=== PATIENT | male | born 1990 | race Caucasian/White ===

== ENCOUNTER 2020-03-06 05:34 | Emergency (ER) | payer OTHER ==
[2020-03-06] MEDS ORDERED: Ondansetron ODT 4 MG TAB ONE ×2 (06:07→06:09)
--- NOTE | 2020-03-06 08:45 | CT ---
PRELIMINARY REPORT/[facility]/EMERGENCY AFTER HOURS PROCEDURE: EXAM: CT Head Without Intravenous Contrast. CLINICAL HISTORY: 29-year-old inmate is brought to the emergency department for evaluation of a laceration sustained af ter a fall in the bathroom. The patient states that he was feeling a bit queasy to his stomach, sat d own on a bench, and the next thing he knew he was on the floor with somebody holding his head. The pa jessica thinks that the length of loss of consciousness was less than a minute. The patient does not hedrick ve any other injuries related to the fall, and is complaining of a mild headache in the area where he hit his head posteriorly, and still having some mild nausea with no associated abdominal pain. TECHNIQUE: Axial computed tomography images of the head/brain without intravenous contrast. COMPARISON: None provided. FINDINGS: BRAIN: No acute intraparenchymal hemorrhage. No mass lesion. No CT evidence for acute territorial infarct. N o midline shift or extra-axial collection. VENTRICLES: No hydrocephalus. ORBITS: The orbits are unremarkable. SINUSES AND MASTOIDS: The paranasal sinuses and mastoid air cells are clear. SOFT TISSUES: No significant facial or scalp soft tissue swelling evident. No radiopaque foreign body is seen. BONES: No acute skull fracture. IMPRESSION: No acute intracranial abnormality. ELECTRONICALLY SIGNED BY: Thuan Haider MD Mar 06, 2020 6:45:43 AM [employer] This report is intended for review by the ordering physician only, in accordance of law. If you recei ve this report in error, please call [facility] at [phone]. FINAL REPORT EMERGENCY AFTER HOURS HEAD CT WITHOUT CONTRAST: Date: 03/06/2020 HISTORY: Fall. Laceration to back of head. FINDINGS: No parenchymal hemorrhage. No extra-axial hematoma. No midline shift. Basilar cisterns are patent. Brain volume is age-appropriate. Cortical rice-white matter differentiation is preserved. No hydrocephalus. Intact calvarium. Adequate aeration of sinuses and mastoid air cells. Partially calcified, mildly enlarged pineal gland. IMPRESSION: 1. No intracranial post-traumatic sequelae. 2. Partially calcified, mildly enlarged pineal gland. Nonemergent brain MRI with and without contras t is recommended. I agree with the preliminary report given by [facility]. CODE T. POS: [facility]
== END 2020-03-06 07:07 ==
LOC: NAV ERS 05:34
DX: S01.01XA Laceration without foreign body of scalp, initial encounter (principal); R11.2 Nausea with vomiting, unspecified; Z87.891 Personal history of nicotine dependence; J45.909 Unspecified asthma, uncomplicated; W01.198A Fall on same level from slipping, tripping and stumbling with subsequent striking against other object, initial encounter; Y93.E1 Activity, personal bathing and showering; Y92.002 Bathroom of unspecified non-institutional (private) residence as the place of occurrence of the external cause
CPT/HCPCS: 12001; 70450; Q0162